=== PATIENT | male | born 1950 | race Caucasian/White ===

== ENCOUNTER 2020-12-28 09:50 | Observation (INO) | payer MEDICARE ==
[2020-12-28] MEDS ORDERED: ASPIRIN 81 MG PO STA (10:12)
[2020-12-28] MEDS ORDERED: SODIUM CHLORIDE 0.9% 1,000 ML IV STA (10:12)
--- NOTE | 2020-12-28 10:15 | ED ---
General Adult HPI - General Chief complaint: Arrhythmia/Palpitations Stated complaint: Rapid Heart Beat Time Seen by Provider: 12/28/20 09:55 Source: patient, RN notes reviewed, old records reviewed Mode of arrival: ambulatory Limitations: no limitations - History of Present Illness Initial comments: This is a 70-year-old male who presents to the emergency department with a past medical history significant for atrial fibrillation. Patient states she had an ablation 17 or 18 years ago. Patient states last night he has some chest discomfort on his left but thought it was maybe something he ate he woke up this morning and continued to have the left-sided chest discomfort he said there was no pain but it was uncomfortable and not normal. Patient states he took his pulse and was 88 on 189 and the other which she states is faster than his normal 58-60 beats a minute. Patient denies any shortness of breath or difficulty breathing. Patient denies any fever chills or cough. Patient denies any lightheadedness or dizziness. Patient denies headache patient denies numbness weakness per patient denies abdominal pain patient's nausea vomiting diarrhea. Patient states he has no medical problems and takes no medications. - Related Data Home Medications Medication Instructions Recorded Confirmed Multivitamins, Thera [Multivitamin 1 tab PO DAILY 12/28/20 12/28/20 (formulary)] Allergies Allergy/AdvReac Type Severity Reaction Status Date / Time No Known Allergies Allergy Verified 12/28/20 10:48 Review of Systems ROS Statement: Those systems with pertinent positive or pertinent negative responses have been documented in the HPI. ROS Other: All systems not noted in ROS Statement are negative. Past Medical History Additional Past Medical History / Comment(s): cardiac ablation. History of Any Multi-Drug Resistant Organisms: None Reported Past Surgical History: Back Surgery Additional Past Surgical History / Comment(s): vein strip. Past Psychological History: No Psychological Hx Reported Smoking Status: Never smoker Past Alcohol Use History: Occasional Past Drug Use History: None Reported General Exam - General Exam Comments Initial Comments: GENERAL: Patient is well-developed and well-nourished. Patient is nontoxic and well- hydrated and is in mild distress. ENT: Neck is soft and supple. No significant lymphadenopathy is noted. Oropharynx is clear. Moist mucous membranes. Neck has full range of motion without eliciting any pain. EYES: The sclera were anicteric and conjunctiva were pink and moist. Extraocular movements were intact and pupils were equal round and reactive to light. Eyelids were unremarkable. PULMONARY: Unlabored respirations. Good breath sounds bilaterally. No audible rales rhonchi or wheezing was noted. CARDIOVASCULAR: There is a regular rate and rhythm without any murmurs gallops or rubs. ABDOMEN: Soft and nontender with normal bowel sounds. SKIN: Skin is clear with no lesions or rashes and otherwise unremarkable. NEUROLOGIC: Patient is alert and oriented x3. Cranial nerves II through XII are grossly intact. Motor and sensory are also intact. Normal speech, volume and content. Symmetrical smile. MUSCULOSKELETAL: Normal extremities with adequate strength and full range of motion. No lower extremity swelling or edema. No calf tenderness. LYMPHATICS: No significant lymphadenopathy is noted PSYCHIATRIC: Normal psychiatric evaluation. Limitations: no limitations Course Vital Signs 12/28/20 12/28/20 12/28/20 09:52 10:16 10:17 Temperature 97.9 F Pulse Rate 80 54 L 53 L Respiratory 18 18 18 Rate Blood Pressure 100/58 101/61 103/71 O2 Sat by Pulse 99 Oximetry 12/28/20 10:30 Temperature Pulse Rate 42 L Respiratory 14 Rate Blood Pressure 93/65 O2 Sat by Pulse 98 Oximetry Medical Decision Making - Medical Decision Making EKG shows atrial flutter at 55 bpm QRS is 78 QT interval is 424 QTC is 405. EKG shows no ST segment elevation or depression Chest x-ray shows no acute abnormality. Patient's heart rate went down to 35 at one point time. I went back in the room to talk with the patient and as though speaking to my noted that the rhythm became regular and it look like a sinus rhythm slightly repeated an EKG. I spoke with Dr. Peres and she agreed to admit the patient admitted the patient wrote admitting orders. I consulted cardiology. I told the patient like to put him on heparin he and his both do not want to go on blood thinners slowly spoke with cardiology. - Lab Data Result diagrams: 12/28/20 10:15 12/28/20 10:15 Lab Results 12/28/20 12/28/20 12/28/20 Range/Units 10:15 10:15 10:15 WBC 3.9 (3.8-10.6) k/uL RBC 3.45 L (4.30-5.90) m/uL Hgb 12.4 L (13.0-17.5) gm/dL Hct 36.4 L (39.0-53.0) % MCV 105.7 H (80.0-100.0) fL MCH 35.9 H (25.0-35.0) pg MCHC 34.0 (31.0-37.0) g/dL RDW 18.2 H (11.5-15.5) % Plt Count 237 (150-450) k/uL MPV 8.0 Neutrophils % 54 % Lymphocytes % 33 % Monocytes % 7 % Eosinophils % 4 % Basophils % 1 % Neutrophils # 2.1 (1.3-7.7) k/uL Lymphocytes # 1.3 (1.0-4.8) k/uL Monocytes # 0.3 (0-1.0) k/uL Eosinophils # 0.1 (0-0.7) k/uL Basophils # 0.0 (0-0.2) k/uL Manual Slide Review Performed Poikilocytosis (manual Present Anisocytosis Slight Macrocytosis Marked A PT 10.3 (9.0-12.0) sec INR 1.0 (<1.2) APTT 24.3 (22.0-30.0) sec Sodium 140 (137-145) mmol/L Potassium 4.6 (3.5-5.1) mmol/L Chloride 107 (98-107) mmol/L Carbon Dioxide 27 (22-30) mmol/L Anion Gap 6 mmol/L BUN 23 H (9-20) mg/dL Creatinine 1.04 (0.66-1.25) mg/dL Est GFR (CKD-EPI)AfAm 83 (>60 ml/min/1.73 sqM) Est GFR (CKD-EPI)NonAf 72 (>60 ml/min/1.73 sqM) Glucose 79 (74-99) mg/dL Calcium 9.1 (8.4-10.2) mg/dL Magnesium 2.1 (1.6-2.3) mg/dL Total Bilirubin 0.9 (0.2-1.3) mg/dL AST 32 (17-59) U/L ALT 19 (4-49) U/L Alkaline Phosphatase 64 (38-126) U/L Troponin I (0.000-0.034) ng/mL Total Protein 6.6 (6.3-8.2) g/dL Albumin 3.9 (3.5-5.0) g/dL 12/28/20 Range/Units 10:15 WBC (3.8-10.6) k/uL RBC (4.30-5.90) m/uL Hgb (13.0-17.5) gm/dL Hct (39.0-53.0) % MCV (80.0-100.0) fL MCH (25.0-35.0) pg MCHC (31.0-37.0) g/dL RDW (11.5-15.5) % Plt Count (150-450) k/uL MPV Neutrophils % % Lymphocytes % % Monocytes % % Eosinophils % % Basophils % % Neutrophils # (1.3-7.7) k/uL Lymphocytes # (1.0-4.8) k/uL Monocytes # (0-1.0) k/uL Eosinophils # (0-0.7) k/uL Basophils # (0-0.2) k/uL Manual Slide Review Poikilocytosis (manual Anisocytosis Macrocytosis PT (9.0-12.0) sec INR (<1.2) APTT (22.0-30.0) sec Sodium (137-145) mmol/L Potassium (3.5-5.1) mmol/L Chloride (98-107) mmol/L Carbon Dioxide (22-30) mmol/L Anion Gap mmol/L BUN (9-20) mg/dL Creatinine (0.66-1.25) mg/dL Est GFR (CKD-EPI)AfAm (>60 ml/min/1.73 sqM) Est GFR (CKD-EPI)NonAf (>60 ml/min/1.73 sqM) Glucose (74-99) mg/dL Calcium (8.4-10.2) mg/dL Magnesium (1.6-2.3) mg/dL Total Bilirubin (0.2-1.3) mg/dL AST (17-59) U/L ALT (4-49) U/L Alkaline Phosphatase (38-126) U/L Troponin I <0.012 (0.000-0.034) ng/mL Total Protein (6.3-8.2) g/dL Albumin (3.5-5.0) g/dL Disposition Clinical Impression: New onset atrial flutter, Bradycardia, Chest discomfort Disposition: ADMITTED IP TO THIS HOSP Time of Disposition: 11:17
[2020-12-28 10:26] LABS: Anisocytosis Slight; Basophils % (A) 1 %; Eosinophils # (A) 0.1 k/uL (0-0.7); Eosinophils % (A) 4 %; HCT 36.4 % (39.0-53.0); HGB 12.4 gm/dL (13.0-17.5); Lymphocytes # (A) 1.3 k/uL (1.0-4.8); Lymphocytes % (A) 33 %; MCH 35.9 pg (25.0-35.0); MCV 105.7 fL (80.0-100.0); Macrocytosis Marked; Monocytes # (A) 0.3 k/uL (0-1.0); Monocytes % (A) 7 %; Neutrophils # (A) 2.1 k/uL (1.3-7.7); Neutrophils % (A) 54 %; Platelet Count 237 k/uL (150-450); RBC 3.45 m/uL (4.30-5.90); RDW 18.2 % (11.5-15.5); WBC 3.9 k/uL (3.8-10.6)
--- NOTE | 2020-12-28 10:27 | XR ---
EXAMINATION TYPE: XR chest 2V DATE OF EXAM: 12/28/2020 COMPARISON: NONE HISTORY: 70 years Male. STUDY INDICATION GIVEN: Chest Pain . TECHNIQUE: Frontal lateral chest radiographs IMPRESSION: Hyperinflated lungs. Mild bibasilar subsegmental atelectasis. No focal airspace disease, pneumothorax or pleural effusion. The heart and mediastinum are within normal limit. No acute osseous abnormality .
[2020-12-28 10:34] LABS: Albumin 3.9 g/dL (3.5-5.0); Calcium 9.1 mg/dL (8.4-10.2); Magnesium 2.1 mg/dL (1.6-2.3); Partial Thromboplastin Time 24.3 sec (22.0-30.0); Potassium 4.6 mmol/L (3.5-5.1); Prothrombin Time 10.3 sec (9.0-12.0); Total Bilirubin 0.9 mg/dL (0.2-1.3); Total Protein 6.6 g/dL (6.3-8.2)
[2020-12-28 10:59] LABS: Poikilocytosis (M) Present
[2020-12-28] MEDS ORDERED: NITROGLYCERIN SL TABS 0.4 MG TAB SUBLINGUAL PRN (11:17)
[2020-12-28] MEDS ORDERED: SODIUM CHLORIDE 0.9% 500 ML 500 ML IV ONE (11:18)
[2020-12-28] MEDS: SODIUM CHLORIDE 0.9% 1,000 ML IV SCH (11:31)
--- NOTE | 2020-12-28 18:51 | P.HPIM ---
History of Present Illness H&P Date: 12/28/20 Chief Complaint: Heart is in a cloud This is a 70-year-old pleasant gentleman patient of Dr. Andre Gonzalez, with underlying history of atrial fibrillation, diagnosed approximately 19 years ago, for which he required ablation at that time. She did well, until he comes in with what he claims that the chest was in a cloud, he did not describe it as palpitations, did not describe it as chest or heaviness, however it mimics what he has had 19 years ago for the atrial fibrillation. Patient has 2 cups of coffee per day, no alcohol, no decongestants, and no inhalers. In the emergency room, he has atrial flutter with variable AV block, heart rate of 55, patient was seen consultation by cardiology during this admission. TSH mentation levels to be done, his CHADS@VASC score is 1, based on age patient does not have any history of diabetes hypertension CVA TIA in the past, patient has refused anticoagulation, however his agreement of aspirin, patient went into spontaneous sinus rhythm, without any intervention. Patient currently is in a quality assurance monitor. Consult with cardiology troponins 3 are negative, hemoglobin is 12.4, however MCV is elevated at 105, platelet count is 237 Review of Systems All systems: negative Constitutional: Denies as per HPI, Denies anorexia, Denies chills, Denies chron ic headaches, Denies chronic pain, Denies daytime sleepiness, Denies fatigue, Denies fever, Denies lethargy, Denies malaise, Denies night sweats, Denies poor appetite, Denies sweats, Denies weakness, Denies weight gain, Denies weight loss Ears, nose, mouth and throat: Reports as per HPI Cardiovascular: Reports as per HPI, Denies chest pain, Denies claudication, Denies decreased exercise tolerance, Denies dyspnea on exertion, Denies edema, Denies high blood pressure, Denies irregular heart beat, Denies leg edema, Denies lightheadedness, Denies orthopnea, Denies palpitations, Denies paroxysmal nocturnal dyspnea, Denies phlebitis, Denies rapid heart beat, Denies shortness of breath, Denies syncope Gastrointestinal: Reports as per HPI Genitourinary: Reports as per HPI Integumentary: Reports as per HPI, Denies acne, Denies boils, Denies brittle nails, Denies change in hair/nails, Denies color changes, Denies darkening of skin, Denies depigmentation, Denies dryness, Denies foot/leg ulcers, Denies growths, Denies hirsutism, Denies lesions, Denies onychomycosis, Denies pruritus, Denies rash, Denies sores, Denies striae, Denies unusual bruising, Denies wounds Neurological: Reports as per HPI, Denies aphasia, Denies ataxia, Denies balance difficulties, Denies burning pain, Denies change in mentation, Denies change in smell/taste, Denies change in speech, Denies confusion, Denies convulsions, Denies double vision, Denies gait dysfunction, Denies head injury, Denies headaches, Denies hearing difficulties, Denies lack of coordination, Denies loss of vision, Denies memory loss, Denies migraines, Denies motor disturbance, Denies numbness, Denies paralysis, Denies paresthesias, Denies seizures, Denies sensory deficit, Denies spasticity, Denies syncope, Denies tic, Denies tingling, Denies transient paralysis, Denies tremors, Denies vertigo, Denies weakness, Denies visual changes Psychiatric: Reports as per HPI, Denies anhedonia, Denies anxiety, Denies anxiety attacks, Denies change in appetite, Denies change in libido, Denies change in sleep habits, Denies confusion, Denies depression, Denies difficulty c oncentrating, Denies disorientation, Denies hallucinations, Denies hopelessness, Denies hypersomnia, Denies insomnia, Denies irritability, Denies memory loss, Denies mood swings, Denies paranoia, Denies sadness/tearfulness, Denies sleep disturbances, Denies suicidal ideation Endocrine: Denies as per HPI, Denies cold intolerance, Denies deepening of the voice, Denies excessive sweating, Denies excessive thirst, Denies fatigue, Denies flushing, Denies heat intolerance, Denies high blood sugars, Denies increase in ring/shoe/hat size, Denies low blood sugars, Denies nocturia, Denies palpitations, Denies polydipsia, Denies polyphagia, Denies polyuria, Denies proptosis, Denies recent glucocorticoid use, Denies thyroid mass, Denies weight change Hematologic/Lymphatic: Reports as per HPI, Denies easy bleeding, Denies easy bruising, Denies lymphadenopathy, Denies lymphedema, Denies thrombophilia Allergic/Immunologic: Reports as per HPI, Denies allergic rhinitis, Denies anaphylaxis, Denies angioedema, Denies gluten intolerance, Denies persistent infections, Denies seasonal allergies, Denies urticaria, Denies wheezing Past Medical History Additional Past Medical History / Comment(s): cardiac ablation. History of Any Multi-Drug Resistant Organisms: None Reported Past Surgical History: Back Surgery Additional Past Surgical History / Comment(s): vein strip. Past Psychological History: No Psychological Hx Reported Smoking Status: Never smoker Past Alcohol Use History: Occasional Past Drug Use History: None Reported Medications and Allergies Home Medications Medication Instructions Recorded Confirmed Type Multivitamins, Thera [Multivitamin 1 tab PO DAILY 12/28/20 12/28/20 History (formulary)] Allergies Allergy/AdvReac Type Severity Reaction Status Date / Time No Known Allergies Allergy Verified 12/28/20 10:48 Physical Exam Vitals: Vital Signs Temp Pulse Pulse Resp BP BP Pulse Ox 12/28/20 11:46 97.9 F 54 L 17 99/63 98 12/28/20 11:30 49 L 10 L 93/64 98 12/28/20 11:00 47 L 14 92/60 98 12/28/20 10:30 42 L 14 93/65 98 12/28/20 10:17 53 L 18 103/71 12/28/20 10:16 54 L 18 101/61 12/28/20 09:52 97.9 F 80 18 100/58 99 Intake and Output 12/27/20 12/28/20 12/28/20 22:59 06:59 14:59 Other: Voiding Method Toilet Weight 89.811 kg - Constitutional General appearance: cooperative, no acute distress - EENT Eyes: EOMI, PERRLA ENT: NA/AT, normal oropharynx - Neck Neck: normal ROM - Respiratory Respiratory: bilateral: CTA, negative: diminished, dullness - Gastrointestinal General gastrointestinal: normal bowel sounds, soft - Integumentary Integumentary: decreased turgor, normal - Neurologic Neurologic: CNII-XII intact - Musculoskeletal Musculoskeletal: gait normal, strength equal bilaterally - Psychiatric Psychiatric: A&O x's 3, appropriate affect Results CBC & Chem 7: 12/28/20 10:15 12/28/20 10:15 Labs: Abnormal Lab Results - Last 24 Hours (Table) 12/28/20 12/28/20 Range/Units 10:15 10:15 RBC 3.45 L (4.30-5.90) m/uL Hgb 12.4 L (13.0-17.5) gm/dL Hct 36.4 L (39.0-53.0) % MCV 105.7 H (80.0-100.0) fL MCH 35.9 H (25.0-35.0) pg RDW 18.2 H (11.5-15.5) % Macrocytosis Marked A BUN 23 H (9-20) mg/dL Laboratory Results WBC 3.9 k/uL (3.8-10.6) 12/28/20 10:15 RBC 3.45 m/uL (4.30-5.90) L 12/28/20 10:15 Hgb 12.4 gm/dL (13.0-17.5) L 12/28/20 10:15 Hct 36.4 % (39.0-53.0) L 12/28/20 10:15 MCV 105.7 fL (80.0-100.0) H 12/28/20 10:15 MCH 35.9 pg (25.0-35.0) H 12/28/20 10:15 MCHC 34.0 g/dL (31.0-37.0) 12/28/20 10:15 RDW 18.2 % (11.5-15.5) H 12/28/20 10:15 Plt Count 237 k/uL (150-450) 12/28/20 10:15 MPV 8.0 12/28/20 10:15 Neutrophils % 54 % 12/28/20 10:15 Lymphocytes % 33 % 12/28/20 10:15 Monocytes % 7 % 12/28/20 10:15 Eosinophils % 4 % 12/28/20 10:15 Basophils % 1 % 12/28/20 10:15 Neutrophils # 2.1 k/uL (1.3-7.7) 12/28/20 10:15 Lymphocytes # 1.3 k/uL (1.0-4.8) 12/28/20 10:15 Monocytes # 0.3 k/uL (0-1.0) 12/28/20 10:15 Eosinophils # 0.1 k/uL (0-0.7) 12/28/20 10:15 Basophils # 0.0 k/uL (0-0.2) 12/28/20 10:15 Manual Slide Review Performed 12/28/20 10:15 Poikilocytosis (manual Present 12/28/20 10:15 Anisocytosis Slight 12/28/20 10:15 Macrocytosis Marked A 12/28/20 10:15 PT 10.3 sec (9.0-12.0) 12/28/20 10:15 INR 1.0 (<1.2) 12/28/20 10:15 APTT 24.3 sec (22.0-30.0) 12/28/20 10:15 Sodium 140 mmol/L (137-145) 12/28/20 10:15 Potassium 4.6 mmol/L (3.5-5.1) 12/28/20 10:15 Chloride 107 mmol/L (98-107) 12/28/20 10:15 Carbon Dioxide 27 mmol/L (22-30) 12/28/20 10:15 Anion Gap 6 mmol/L 12/28/20 10:15 BUN 23 mg/dL (9-20) H 12/28/20 10:15 Creatinine 1.04 mg/dL (0.66-1.25) 12/28/20 10:15 Est GFR (CKD-EPI)AfAm 83 (>60 ml/min/1.73 sqM) 12/28/20 10:15 Est GFR (CKD-EPI)NonAf 72 (>60 ml/min/1.73 sqM) 12/28/20 10:15 Glucose 79 mg/dL (74-99) 12/28/20 10:15 Calcium 9.1 mg/dL (8.4-10.2) 12/28/20 10:15 Magnesium 2.1 mg/dL (1.6-2.3) 12/28/20 10:15 Total Bilirubin 0.9 mg/dL (0.2-1.3) 12/28/20 10:15 AST 32 U/L (17-59) 12/28/20 10:15 ALT 19 U/L (4-49) 12/28/20 10:15 Alkaline Phosphatase 64 U/L (38-126) 12/28/20 10:15 Troponin I <0.012 ng/mL (0.000-0.034) 12/28/20 14:17 Total Protein 6.6 g/dL (6.3-8.2) 12/28/20 10:15 Albumin 3.9 g/dL (3.5-5.0) 12/28/20 10:15 Thrombosis Risk Factor Assmnt - Choose All That Apply Any of the Below Risk Factors Present?: No Other Risk Factors: Yes Each Risk Factor Represents 2 Points: Age 61-74 years Thrombosis Risk Factor Assessment Total Risk Factor Score: 2 Thrombosis Risk Factor Assessment Level: Low Risk Assessment and Plan Plan: 1. Atrial flutter, suspect paroxysmal, with known history of cardiac ablation 19 years ago, patient with this in consultation by cardiology, chads 2 vas score of 1, aspirin 325 mg to be initiated. Patient does not have any history of hypertension diabetes, no strokes, no history of vascular disease, no CHF. Hasn't adjusted as appropriate to 1.3% per year 2 caffeine intake 2 cups per day, patient was advised to minimize it 3. Prior history of cardiac ablation, for atrial fibrillation or some form of malignant arrhythmia in the past 3. Elevated red blood cell volume, megalocytosis, patient is not an alcoholic cord does not imbibe on any alcohol, patient would have an RBC folate and vitamin B12 checked. 4. GI prophylaxis and DVT prophylaxisTED toshia, and Asael
[2020-12-28] MEDS: FAMOTIDINE 20 MG TAB PO SCH (19:47)
[2020-12-28 20:17] VITALS: RESP 16
[2020-12-29] MEDS: SODIUM CHLORIDE 0.9% 1,000 ML IV SCH (01:33)
[2020-12-29 07:36] VITALS: BP 127/82; PULSE 62; TEMP 97.8
[2020-12-29] MEDS: FAMOTIDINE 20 MG TAB PO SCH (07:44)
[2020-12-29] MEDS ORDERED: ASPIRIN 325 MG TAB PO SCH (09:00)
[2020-12-29 09:30] LABS: Chol/HDL Ratio 2.47; Cholesterol 131 mg/dL (0-200); Triglycerides <50.0 mg/dL (0.0-149.0)
[2020-12-29 09:35] LABS: Magnesium 1.8 mg/dL (1.5-2.4)
--- NOTE | 2020-12-29 11:53 | P.CRDCN ---
History of Present Illness Consult date: 12/29/20 History of present illness: This is a 70-year-old gentleman with history of atrial fibrillation for which she had an ablation done about 19 years ago. He claims that was done in this hospital. Patient hasn't been on any medication. He does not take an aspirin. Apparently he was not drinking properly and thinks he might have been dehydrated. However, yesterday started feeling some uneasy feeling in the chest similar to what he had in the past. He did not get better by next morning and then he came to the hospital. He was found to be in atrial flutter with slow conduction with heart rates in the 50s. Patient's subsequently converted dose sinus rhythm. He is feeling much better. He doesn't want to take any and decortication therapy. He may be willing to take aspirin. He doesn't have any chest pain, shortness of breath, dizziness or syncope. Lungs are clear. Heart is regular. It appears that patient may have paroxysmal/persistent atrial flutter. He may consider an ablation if the symptoms recur. He is going to go home on aspirin. Is going to have an echocardiogram to assess LV function, as an outpatient. Follow-up in the office in one week Review of Systems As per the chart Past Medical History Additional Past Medical History / Comment(s): cardiac ablation. History of Any Multi-Drug Resistant Organisms: None Reported Past Surgical History: Back Surgery Additional Past Surgical History / Comment(s): vein strip. Past Psychological History: No Psychological Hx Reported Smoking Status: Never smoker Past Alcohol Use History: Occasional Past Drug Use History: None Reported Medications and Allergies Home Medications Medication Instructions Recorded Confirmed Type Multivitamins, Thera [Multivitamin 1 tab PO DAILY 12/28/20 12/28/20 History (formulary)] Allergies Allergy/AdvReac Type Severity Reaction Status Date / Time No Known Allergies Allergy Verified 12/28/20 10:48 Physical Exam Vitals: Vital Signs Temp Pulse Pulse Resp BP Pulse Ox 12/29/20 08:42 96 12/29/20 07:32 97.8 F 62 16 127/82 97 12/29/20 02:00 57 L 12/29/20 00:56 98.1 F 57 L 16 125/73 98 12/28/20 20:00 59 L 16 12/28/20 18:47 97.9 F 59 L 16 105/66 99 12/28/20 14:49 97.6 F 50 L 17 100/64 98 Intake and Output 12/28/20 12/29/20 12/29/20 22:59 06:59 14:59 Intake Total 1198 Balance 1198 Intake: Oral 1198 Other: Voiding Method Toilet Toilet # Voids 2 GENERAL EXAM: Patient is alert and oriented and doesn't appear to be in any acute distress HEENT: Normocephalic. Normal reaction of pupils, equal size, normal range of extraocular motion. No erythema or exudates in the throat. NECK: No masses, no nuchal rigidity. CHEST: No chest wall deformity. LUNGS: Equal air entry with no crackles or wheeze. HEART: S1 and S2 normal with no audible mumurs or gallops. Regular rhythm, femorals equal on both sides.. ABDOMEN: No hepatosplenomegaly, normal bowel sounds, no guarding or rigidity. SKIN: No rashes CENTRAL NERVOUS SYSTEM: No focal deficits. EXTREMITIES: No cyanosis, clubbing or edema. Results 12/28/20 10:15 12/28/20 10:15 Cardiac Enzymes 12/28/20 12/28/20 Range/Units 11:49 14:17 Troponin I <0.012 <0.012 (0.000-0.034) ng/mL Lipids 12/29/20 Range/Units 04:31 Triglycerides <50.0 (0.0-149.0) mg/dL Cholesterol 131 (0-200) mg/dL HDL Cholesterol 53.0 (40.0-60.0) mg/dL Cholesterol/HDL Ratio 2.47 Current Medications Generic Name Dose Route Start Last Admin Trade Name Freq PRN Reason Stop Dose Admin Aspirin 325 mg 12/29/20 09:00 12/29/20 07:44 Aspirin 325 Mg Tab PO 325 mg DAILY MARILYN Administration Famotidine 20 mg 12/28/20 21:00 12/29/20 07:44 Famotidine 20 Mg Tab PO 20 mg BID MARILYN Administration Sodium Chloride 1,000 mls @ 75 mls/hr 12/28/20 11:30 12/29/20 01:33 Saline 0.9% IV Not Given .[id number] MARILYN Nitroglycerin 0.4 mg 12/28/20 11:17 Nitroglycerin Sl Tabs 0.4 Mg Tab SUBLINGUAL Q5M PRN Chest Pain Intake and Output 12/28/20 12/29/20 12/29/20 22:59 06:59 14:59 Intake Total 1198 Balance 1198 Intake: Oral 1198 Other: Voiding Method Toilet Toilet # Voids 2 12/28/20 10:15 12/28/20 10:15 EKG Interpretations (text) Initial EKG showed atrial flutter with slow ventricular response Assessment and Plan (1) Bradycardia Current Visit: Yes Status: Acute Code(s): R00.1 - BRADYCARDIA, UNSPECIFIED SNOMED Code(s): 17562747 (2) New onset atrial flutter Current Visit: Yes Status: Acute Code(s): I48.92 - UNSPECIFIED ATRIAL FL UTTER SNOMED Code(s): 1326701 Plan: Patient wants to go home. He could be discharged home on aspirin. Follow-up in the office in one week. Echocardiogram before office visit
--- NOTE | 2020-12-29 12:48 | P.DS ---
Providers Date of admission: 12/28/20 11:17 Expected date of discharge: 12/29/20 Attending physician: Joya Peres Consults: 12/28/20 11:17 Consult Physician Urgent Consulting Provider: [facility] Consult Reason/Comments: New-onset atrial flutter, chest discomfort Do you want consulting provider notified?: Yes Primary care physician: [facility] Course: This is a 70-year-old pleasant gentleman patient of Dr. Andre Gonzalez, with underlying history of atrial fibrillation, diagnosed approximately 19 years ago, for which he required ablation at that time. She did well, until he comes in with what he claims that the chest was in a cloud, he did not describe it as palpitations, did not describe it as chest or heaviness, however it mimics what he has had 19 years ago for the atrial fibrillation. Patient has 2 cups of coffee per day, no alcohol, no decongestants, and no inhalers. In the emergency room, he has atrial flutter with variable AV block, heart rate of 55, patient was seen consultation by cardiology during this admission. TSH mentation levels to be done, his CHADS@VASC score is 1, based on age patient does not have any history of diabetes hypertension CVA TIA in the past, patient has refused anticoagulation, however his agreement of aspirin, patient went into spontaneous sinus rhythm, without any intervention. Patient currently is in a front desk monitor. Consult with cardiology troponins 3 are negative, hemoglobin is 12.4, however MCV is elevated at 105, platelet count is 237 9/5: Patient's doing much better, no events, no palpitations no shortness of breath no chest pain, patient was cleared by cardiology, with aspirin to take. Follow-up with Dr. Dan in 1-3 weeks, discussed social applications like [employer] for monitoringwhich he can get over- the Internet without any prescription Review of Systems All systems: negative Constitutional: Denies as per HPI, Denies anorexia, Denies chills, Denies chronic headaches, Denies chronic pain, Denies daytime sleepiness, Denies fatigue, Denies fever, Denies lethargy, Denies malaise, Denies night sweats, Denies poor appetite, Denies sweats, Denies weakness, Denies weight gain, Denies weight loss Ears, nose, mouth and throat: Reports as per HPI Cardiovascular: Reports as per HPI, Denies chest pain, Denies claudication, Denies decreased exercise tolerance, Denies dyspnea on exertion, Denies edema, Denies high blood pressure, Denies irregular heart beat, Denies leg edema, Denies lightheadedness, Denies orthopnea, Denies palpitations, Denies paroxysmal nocturnal dyspnea, Denies phlebitis, Denies rapid heart beat, Denies shortness of breath, Denies syncope Gastrointestinal: Reports as per HPI Genitourinary: Reports as per HPI Integumentary: Reports as per HPI, Denies acne, Denies boils, Denies brittle nails, Denies change in hair/nails, Denies color changes, Denies darkening of skin, Denies depigmentation, Denies dryness, Denies foot/leg ulcers, Denies grow ths, Denies hirsutism, Denies lesions, Denies onychomycosis, Denies pruritus, Denies rash, Denies sores, Denies striae, Denies unusual bruising, Denies wounds Neurological: Reports as per HPI, Denies aphasia, Denies ataxia, Denies balance difficulties, Denies burning pain, Denies change in mentation, Denies change in smell/taste, Denies change in speech, Denies confusion, Denies convulsions, Denies double vision, Denies gait dysfunction, Denies head injury, Denies headaches, Denies hearing difficulties, Denies lack of coordination, Denies loss of vision, Denies memory loss, Denies migraines, Denies motor disturbance, Denies numbness, Denies paralysis, Denies paresthesias, Denies seizures, Denies sensory deficit, Denies spasticity, Denies syncope, Denies tic, Denies tingling, Denies transient paralysis, Denies tremors, Denies vertigo, Denies weakness, Denies visual changes Psychiatric: Reports as per HPI, Denies anhedonia, Denies anxiety, Denies anxiety attacks, Denies change in appetite, Denies change in libido, Denies change in sleep habits, Denies confusion, Denies depression, Denies difficulty concentrating, Denies disorientation, Denies hallucinations, Denies hopelessness, Denies hypersomnia, Denies insomnia, Denies irritability, Denies memory loss, Denies mood swings, Denies paranoia, Denies sadness/tearfulness, Denies sleep disturbances, Denies suicidal ideation Endocrine: Denies as per HPI, Denies cold intolerance, Denies deepening of the voice, Denies excessive sweating, Denies excessive thirst, Denies fatigue, Denies flushing, Denies heat intolerance, Denies high blood sugars, Denies increase in ring/shoe/hat size, Denies low blood sugars, Denies nocturia, Denies palpitations, Denies polydipsia, Denies polyphagia, Denies polyuria, Denies proptosis, Denies recent glucocorticoid use, Denies thyroid mass, Denies weight change Hematologic/Lymphatic: Reports as per HPI, Denies easy bleeding, Denies easy bruising, Denies lymphadenopathy, Denies lymphedema, Denies thrombophilia Allergic/Immunologic: Reports as per HPI, Denies allergic rhinitis, Denies anaphylaxis, Denies angioedema, Denies gluten intolerance, Denies persistent infections, Denies seasonal allergies, Denies urticaria, Denies wheezing Final diagnosis Plan: 1. Atrial flutter, suspect paroxysmal, with known history of cardiac ablation 19 years ago, patient with this in consultation by cardiology, chads 2 vas score of 1, aspirin 325 mg to be initiated. Patient does not have any history of hypertension diabetes, no strokes, no history of vascular disease, no CHF. CVA adjusted as appropriate to 1.3% per year. cleared by cardiology, ffup dr dan in 1 wk 2 caffeine intake 2 cups per day, patient was advised to minimize it 3. Prior history of cardiac ablation, for atrial fibrillation or some form of malignant arrhythmia in the past 3. Elevated red blood cell volume, megalocytosis, patient is not an alcoholic cord does not imbibe on any alcohol, patient would have an RBC folate and vitamin B12 checked. 4. GI prophylaxis and DVT prophylaxisTED hose, and Pepcid Discharge Medication List Multivitamins, Thera [Multivitamin (formulary)] 1 tab PO DAILY 12/28/20 [History] Aspirin 325 mg PO DAILY #30 tab 12/29/20 [Rx] Plan - Discharge Summary Discharge Rx Participant: No New Discharge Prescriptions: New Aspirin 325 mg PO DAILY #30 tab Continue Multivitamins, Thera [Multivitamin (formulary)] 1 tab PO DAILY Discharge Medication List Multivitamins, Thera [Multivitamin (formulary)] 1 tab PO DAILY 12/28/20 [History] Aspirin 325 mg PO DAILY #30 tab 12/29/20 [Rx] Follow up Appointment(s)/Referral(s): Gurinder Dan MD [STAFF PHYSICIAN] - 1 Week (Call office on Wednesday morning and schedule a follow up appointment with Dr. Dan for an outpatient echocardiogram. ) Edgar Gonzalez MD [Primary Care Provider] - 1-2 days Discharge Disposition: HOME SELF-CARE
== END 2020-12-29 13:28 | disposition home or self-care (01) ==
LOC: EC 09:50 → 6NMEDSUR 11:17
PROVIDERS: ADMIT Family Medicine; ATTEND Family Medicine
DX: I48.92 Unspecified atrial flutter (principal); I44.30 Unspecified atrioventricular block; R71.8 Other abnormality of red blood cells; Z98.890 Other specified postprocedural states; Z86.79 Personal history of other diseases of the circulatory system
CPT/HCPCS: 99285; 96361 ×2; 96360; 36415; 94760; 93005; 80061; 80053; 84443; 83735; 84484; 85025; 85610; 85730; 71046; G0378 ×2

== ENCOUNTER → 2023-11-03 | Outpatient (CLI) | payer MEDICARE ==
[2023-11-03 08:51] LABS: Appearance,Urine Clear (Clear); Bilirubin,Urine Negative (Negative); Blood,Urine Negative (Negative); Color,Urine Yellow; Glucose,Urine (UA) Negative (Negative); Ketones,Urine Negative (Negative); Leukocyte Esterase,Urine Negative (Negative); Nitrite,Urine Negative (Negative); PH, Urine 5.5 (5.0-8.0); Protein,Urine Negative (Negative); Specific Gravity,Urine 1.028 (1.001-1.035); Urobilinogen,Urine <2.0 mg/dL (<2.0)
--- NOTE | 2023-11-03 09:08 | XR ---
EXAMINATION TYPE: XR chest 2V DATE OF EXAM: 11/03/2023 7:38 AM CLINICAL INDICATION:Male, 73 years old with history of Z01.811 PRE SURGICAL; [facility] COMPARISON: Chest radiographs from 12/28/2020 TECHNIQUE: XR chest 2V Frontal view of the chest. FINDINGS: Lungs/Pleura: There is flattening of the diaphragm with increased lucency of the lungs. No evidence o f pneumothorax, pleural effusion or focal consolidation. Pulmonary vascularity: Unremarkable. Heart/mediastinum: Cardiomediastinal silhouette is unremarkable. Musculoskeletal: No acute osseous pathology. IMPRESSION: 1. No acute cardiopulmonary disease process. 2. COPD changes.
[2023-11-03 12:18] LABS: HGB 11.1 g/dL (13.0-17.0); MCH 34.6 pg (27.0-32.0); MCHC 31.7 g/dL (32.0-37.0); Mean Platelet Volume 11.6 FL (9.5-12.2); NRBC Per 100 WBC 0 X 10*3/uL (0.00-0.01); Platelet Count 266 X 10*3/uL (140-440); RBC 3.21 X 10*6/uL (4.40-5.60); RDW 18.7 % (11.5-14.5); WBC 4.08 X 10*3/uL (4.50-10.00)
[2023-11-03 12:24] LABS: Calcium 8.9 mg/dL (8.7-10.3); Carbon Dioxide 24.6 mmol/L (21.6-31.8); Chloride 105 mmol/L (96-109); Glucose 94 mg/dL (70-110); Potassium 4.3 mmol/L (3.5-5.5); Sodium 141 mmol/L (135-145)
== END | disposition home or self-care (01) ==
LOC: LABWHC1 07:00
PROVIDERS: ATTEND Neurological Surgery
DX: Z01.811 Encounter for preprocedural respiratory examination (principal); J44.9 Chronic obstructive pulmonary disease, unspecified; D64.9 Anemia, unspecified; R73.09 Other abnormal glucose; I49.8 Other specified cardiac arrhythmias; R05.9 Cough, unspecified
CPT/HCPCS: 36415; 71046; 80048; 81003; 83036; 85027; 93005